=== PATIENT | female | born 1995 | race Two or more races ===

== ENCOUNTER 2024-04-11 22:06 | Emergency (ER) | payer OTHER, SELFPAY ==
[2024-04-11 22:08] VITALS: BP 116/76; PULSE 100; O2SAT 99
[2024-04-11 22:17] VITALS: BP 124/70; PULSE 82; RESP 18; TEMP 36.9; O2SAT 95; BMI 30.9
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
[2024-04-11] MEDS: Ibuprofen 600 MG TABLET PO (23:49)
[2024-04-11 23:59] VITALS: BP 124/70; PULSE 82; RESP 18; TEMP 36.9; O2SAT 95
== END 2024-04-11 23:59 | disposition home or self-care (01) ==
PROVIDERS: Emergency Provider Internal Medicine
DX: Z04.1 Encounter for examination and observation following transport accident (principal); M54.2 Cervicalgia; R51.9 Headache, unspecified
CPT/HCPCS: 99283